=== PATIENT | female | born 1990 | race Caucasian/White ===

== ENCOUNTER 2024-08-09 09:09 | Emergency (ER) | payer SELFPAY ==
[~2024-08-09] VITALS: Ht 20.3 cm; Wt 77.3 kg
[~2024-08-09 09:09] MED LIST: BIRTH CONTROL PILLS; CEPHALEXIN500 M1 PO; LORTAB 5/500 501 TAB PO; MACROBID 1100 MG/CAP; MOTRIN800 MG PO; PERCOCET 325 MG1 TA2 PO; PHENERGAN 25 TA25 MG PO; PRENATAL1 TA1 PO
[2024-08-09] MEDS ORDERED: dexAMETHasone 10 MG/ML VIAL IM ONE (12:15)
[2024-08-09 12:30] VITALS: BP 129/103; PULSE 80; TEMP 98
== END 2024-08-09 12:30 | disposition home or self-care (01) ==
LOC: COL.ER 09:09
DX: J32.9 Chronic sinusitis, unspecified (principal); Z20.822 Contact with and (suspected) exposure to COVID-19
CPT/HCPCS: J1100